=== PATIENT | female | born 1965 | race Caucasian/White ===

== ENCOUNTER 2020-10-31 05:49 | Day surgery (SDC) | payer OTHER, SELFPAY ==
--- NOTE | 2020-10-20 14:03 | EKG12_ITS ---
Test Reason : PRE OP Blood Pressure : / mmHG Vent. Rate : 097 BPM Atrial Rate : 097 BPM P-R Int : 176 ms QRS Dur : 060 ms QT Int : 344 ms P-R-T Axes : 055 -38 087 degrees QTc Int : 436 ms Normal sinus rhythm Left axis deviation Hardik- Septal infarct , age undetermined Abnormal ECG Confirmed by TIFFANIE EMERSON, SAMANTHA ([id number]), sound editor MANUELA GUERRERO ([id number]) on 10/23/2020 1:34:41 PM Referred By: Joshua Moreno Confirmed By:SAMANTHA MORENO MD
[2020-10-20 15:23] LABS: Hematocrit 44.4 % (37-47); Hemoglobin 14.4 g/dL (12.0-15.0); Mean Corp Hgb Conc 32.4 g/dL (32-36); Mean Corpuscular Hgb 30.3 pg (27.0-32.0); Mean Corpuscular Volume 93.3 fL (81-99); Mean Platelet Vol. 10.6 fl (6.2-12.0); Platelet Count 333 K/mm3 (150-450); RBC Distribution Width CV 13.5 % (11.6-14.6); RBC Distribution Width SD 46.5 fl (35.1-43.9); Red Blood Count 4.76 M/mm3 (4.2-5.4); White Blood Count 8.3 K/mm3 (4.4-11.0)
[2020-10-20 15:40] LABS: Hemoglobin A1c 6.5 % (3.8-5.6)
[2020-10-20 15:59] LABS: Anion Gap 4 (5-15); BUN 13 mg/dL (7-18); BUN/Creat Ratio 14.1 RATIO (10-20); Calcium,Total 8.8 mg/dL (8.5-10.1); Chloride 104 mmol/L (98-107); Creatinine, Serum 0.92 mg/dL (0.55-1.02); EST Glomerular Filtration Rate 67 mL/min (>60); Est Glom Filt Rate - Afr Amer 81 mL/min (>60); Glucose 173 mg/dL (74-106); Potassium 3.5 mmol/L (3.5-5.1); Sodium Level 137 mmol/L (136-145)
[2020-10-31] VITALS (9 sets, daily range): BP systolic 89–159; BP diastolic 44–94; PULSE 71–89; RESP 16–17; TEMP 36–36.4; O2SAT 93–98; BMI 57.3
[2020-10-31] MEDS: Lactated Ringers 1,000 ML 100 ML IV ×2 (07:14→09:12)
[2020-10-31 07:20] LABS: Bedside Glucose 140 mg/dL (70-110)
[2020-10-31] MEDS: Lidocaine 1% /Epi 1:100 (20ml) 20 ML Vial (08:17)
[2020-10-31] MEDS: Epinephrine (1 mg/ml) 1 MG/ML VIAL (08:17)
--- NOTE | 2020-10-31 09:02 | PCM.OPRPT ---
Report of Operation Date of Procedure: 10/31/20 Pre-Operative Diagnosis: Internal derangement right knee Post-Operative Diagnosis: MMT, Grade 3 chondromalacia PFJ, MFC and LFC Surgery/Procedure Performed:: Diagnostic and Operative arthroscopy with partial medial meniscectomy and chondroplasty of the MFC, LFC and PFJ Description of Surgical Findings:: Report of Operation Date of Procedure: 10/31/20 Preoperative Diagnosis: Right knee, internal derangement Postoperative Diagnosis: Right knee, MMT with Grade 3 chondromalacia of the PFJ, MFC and LFC Operation: Diagnostic and operative arthroscopy of the right knee with arthroscopic partial medial meniscectomy and chondroplasty of the patellofemoral joint, medial femoral condyle and lateral femoral condyle Surgeon: Dr Joshua Moreno DO Anesthesia: spinal Anesthesiologist: Gage Mo M.D. Description of Procedure: With appropriate informed consent, the patient was taken to the operative suite. After induction of general and regional anesthesia and administration of the preoperative antibiotics, the well leg was fitted with ANDI and SCDs and well padded. The right knee was placed into the arthroscopy leg jones, prepped and draped sterilely. The standard arthroscopy portals were pre-injected with 0.5% Marcaine with epinephrine. A lateral portal was established. The diagnostic arthroscopy was begun. The patellofemoral joint revealed diffuse grade 3 chondromalacia of both the patella and the trochlea. The medial compartment was entered and the medial portal was established. A probe was utilized to probe the medial meniscus. There was a multilayered medial meniscus tear and diffuse grade 3 chondromalacia on the medial femoral condyle. ACL and PCL were probed and intact. The lateral compartment was entered. There was greade 3 chondromalacia on the lateral femoral condyle, but no meniscus tear. Subsequently, a partial [ medial ] meniscectomy was performed using a combination of straight and angled basket punches. The meniscotome was then utilized to remove the fragments of cartilage and then to smooth the remainder of the meniscus to a firm and stable rim. A shaver was used to perform a chondroplasty on the [ PFJ, MFC and LFC ] to smooth the roughened surface cartilage and remove any delaminated cartilage. Thereafter, the arthroscopy instruments and fluid were removed. The portals were closed with interrupted sutures of 4-0 nylon followed by application of a sterile well-padded dressing and VICKI wrap. The patient was extubated and transferred to the PACU in stable and satisfactory condition. Joshua Moreno DO Surgeon: Joshua Moreno natural history collections curator: None Type of Anesthesia: Spinal Anesthesiologist: Gage Mo Admoneil VTE Documentation VTE Present on Admission: No VTE Mechan Device Prophylaxis: SCD's VTE Pharm Prophylaxis ordered?: No Reason prophylaxis not ordered:: Treatment Not Indicated
[2020-10-31] MEDS: HYDROcodone Bitartrate/Apap 5/325 Tablet PO (12:49)
== END 2020-10-31 12:51 | disposition home or self-care (01) ==
LOC: SDC 05:51 → AC 05:51
PROVIDERS: PCP Family Medicine; Referring Provider Orthopaedic Surgery; Visit Provider Orthopaedic Surgery
PROC: (CPT 29870; principal; 2020-10-31 07:10)
DX: S83.241A Other tear of medial meniscus, current injury, right knee, initial encounter (principal); M17.11 Unilateral primary osteoarthritis, right knee; M22.41 Chondromalacia patellae, right knee; X58.XXXA Exposure to other specified factors, initial encounter; I10 Essential (primary) hypertension; E07.9 Disorder of thyroid, unspecified; E66.01 Morbid (severe) obesity due to excess calories; Z68.43 Body mass index [BMI] 50.0-59.9, adult; K21.9 Gastro-esophageal reflux disease without esophagitis; M19.90 Unspecified osteoarthritis, unspecified site; F32.9 Major depressive disorder, single episode, unspecified; E11.9 Type 2 diabetes mellitus without complications; G43.909 Migraine, unspecified, not intractable, without status migrainosus; Z87.442 Personal history of urinary calculi; Z79.84 Long term (current) use of oral hypoglycemic drugs; Z79.899 Other long term (current) drug therapy
CPT/HCPCS: 01400; 29881; 36415; 80048; 82962; 83036; 85027; 93005; J7120; J2405